=== PATIENT | female | born 1960 | race Caucasian/White ===

== ENCOUNTER 2018-07-09 14:40 | Observation (INO) ==
[2018-07-09] MEDS: NS 1000 ML 1,000 ML IV SCH (17:13)
[2018-07-09] MEDS: SOLU-Medrol 40 MG VIAL IVP SCH ×2 (17:14→21:05)
[2018-07-09] MEDS: PROTONIX INJ 40 MG VIAL IVP SCH ×2 (17:14→21:04)
[2018-07-09] MEDS: BENTYL CAP 10 MG PO SCH ×2 (17:14→21:04)
[2018-07-09 17:17] LABS: BASOPHILS # (AUTO) 0.1 X10^3/uL (0.0-0.1); BASOPHILS % (AUTO) 1.1 % (0.2-1.0); EOSINOPHILS # (AUTO) 0.3 x10^3/uL (0.0-0.2); HEMOGLOBIN 12.9 g/dL (12.0-16.0); LYMPHOCYTES # (AUTO) 1.1 X10^3/uL (1.3-2.9); LYMPHOCYTES % (AUTO) 23.9 % (21.0-51.0); MEAN CORPUSCULAR HEMOGLOBIN 31.3 pg (27.0-34.0); MEAN CORPUSCULAR HGB CONC 34.1 g/dL (33.0-35.0); MEAN PLATELET VOLUME 9.6 fL (7.4-11.0); MONOCYTES # (AUTO) 0.7 x10^3/uL (0.3-0.8); MONOCYTES % (AUTO) 15.9 % (0.0-13.0); NEUTROPHILS # (AUTO) 2.5 x10^3/uL (2.2-4.8); NEUTROPHILS % (AUTO) 53.1 % (42.0-75.0); PLATELET COUNT 259 X10^3/uL (150.0-450.0); RED BLOOD COUNT 4.13 X10^6/uL (3.5-5.4); RED CELL DISTRIBUTION WIDTH 16.4 % (11.6-16.5); WHITE BLOOD COUNT 4.6 X10^3/uL (3.6-10.0)
[2018-07-09] MEDS: PEPCID 20 MG IV PREMIX* 20 MG/50 ML BAG IV SCH ×2 (17:32→21:05)
[2018-07-09 18:42] LABS: ALANINE AMINOTRANSFERASE 61 Units/L (12-78); ALKALINE PHOSPHATASE 85 Units/L (46-116); ASPARTATE AMINO TRANSFERASE 55 Units/L (15-37); BLOOD UREA NITROGEN 13 mg/dL (7-18); CALCIUM 9.1 mg/dL (8.5-10.1); CARBON DIOXIDE 24.7 mmol/L (21-32); CHLORIDE 107 mmol/L (98-107); COR CA(FOR HYPOALB) 9.9 mg/dL (8.5-10.1); CREATININE 0.69 mg/dL (0.55-1.02); SODIUM 140 mmol/L (136-145); TOTAL PROTEIN 7.2 g/dL (6.4-8.2); eGFR NON BLACK RACES > 60 (>60)
[2018-07-09 19:03] LABS: ERYTHROCYTE SEDIMENTATION RATE 40 MM/HOUR (0-20)
[2018-07-09] MEDS ORDERED: POTASSIUM CHL 40 MEQ/NS 0.45% 500 ML IV PRN (20:16)
[2018-07-09] MEDS ORDERED: POTASSIUM CHL 60 MEQ/NS 0.45% 500 ML IV PRN (20:16)
[2018-07-09] MEDS ORDERED: POTASSIUM CHLORIDE LIQ 20 MEQ UDC PO PRN (20:16)
[2018-07-09] MEDS ORDERED: K-RIDER 10 MEQ/NS 100 ML 10 MEQ/100 ML BAG IV PRN (20:16)
[2018-07-09] MEDS ORDERED: K-LYTE EFFERVESCENT PO PRN (20:16)
[2018-07-09 20:27] LABS: BILIRUBIN,URINE 1+ (NEGATIVE); BLOOD/HEMOGLOBIN,URINE 2+ (NEGATIVE); GLUCOSE, URINE NEGATIVE (NEGATIVE); KETONES,URINE 3+ (NEGATIVE); LEUKOCYTE ESTERASE ,URINE 1+ (NEGATIVE); NITRITES,URINE POSITIVE (NEGATIVE); PROTEIN,URINE 2+ (NEGATIVE); UROBILINOGEN,URINE NORMAL (NORMAL)
[2018-07-09 20:31] LABS: APPEARANCE,URINE HAZY (CLEAR); COLOR,URINE YELLOW (YELLOW)
[2018-07-09 20:33] LABS: CRYPTOSPORIDIUM PARVUM ANTIGEN NEGATIVE (NEGATIVE); GIARDIA LAMBLIA ANTIGEN NEGATIVE (NEGATIVE); STOOL FOR WBC POSITIVE (NEGATIVE)
[2018-07-09 20:36] LABS: SQUAMOUS EPITHELIAL CELL,UR NEGATIVE /HPF (NEGATIVE)
[2018-07-09 20:37] LABS: AMORPHOUS SEDIMENT,UR 3+ /HPF (NEGATIVE); BACTERIA,URINE NEGATIVE /HPF (NEGATIVE); MUCUS,URINE FEW /HPF (NEGATIVE)
[2018-07-09] MEDS: MAGNESIUM SULFATE 1 GRAM/100 mL PREMIX 1 GM/100 ML BAG IV PRN (21:03)
[2018-07-10] MEDS: NS 1000 ML 1,000 ML IV SCH ×3 (03:04→16:04)
[2018-07-10] MEDS: MAGNESIUM SULFATE 1 GRAM/100 mL PREMIX 1 GM/100 ML BAG IV PRN ×3 (04:35→16:05)
[2018-07-10] MEDS ORDERED: NS 100 ML IV + SPIKE MINIBAG* 100 ML IV ONE (05:12)
[2018-07-10] MEDS: SOLU-Medrol 40 MG VIAL IVP SCH ×3 (06:10→21:19)
--- NOTE | 2018-07-10 06:10 | CT ---
HISTORY: Abdominal pain. Prior surgical history of bowel resection and lap band. Cholecystectomy Study: CT abdomen and pelvis with IV contrast Comparison: KUB done 06/07/2015. Technique: Multiple axial images of the abdomen and pelvis were obtained from the lung bases to the pubic symphy sis during the administration of IV contrast. Coronal and sagittal images are also reviewed. Dose re duction techniques included utilization of automatic exposure control.. Findings: The visualized portions of the lung bases are unremarkable. There is a 4 cm hiatal hernia present. Di stal to the hiatal hernia and below the diaphragm is the lap band device. The port is present in the periumbilical region on the left. The liver, spleen, pancreas, kidneys, and adrenal glands are unrema rkable in their CT appearance. Gallbladder is surgically absent.. No significant mesenteric lymphade nopathy is observed. No free fluid or free air is seen within the abdomen. No bowel wall dilatation is present. There is mild thickening of the terminal ileum with some associated very mild stranding of the adjacent mesenteric. Findings have the appearance of inflammation, likely terminal or distal i leitis. The appendix is not discretely identified. No evidence of pericecal mass or fluid is seen. Th e colon is unremarkable. Specifically, there is no diverticulosis noted within the sigmoid colon. Th e urinary bladder is grossly unremarkable. Uterus and ovaries are not identified and may have been caputo rgically removed. The bony structures are grossly intact. IMPRESSION: Wall thickening and adjacent stranding of the mesenteric in the region of the terminal ileum. Finding s likely represent distal ileitis. Findings are best appreciated on series 6, image 24 and series 4, image 68. No evidence of fluid collection, mass or abscess is seen. Postsurgical changes as noted above. Reported By:
[2018-07-10 06:19] LABS: BASOPHILS % (AUTO) 0.1 % (0.2-1.0); HEMATOCRIT 33.5 % (36.0-47.0); HEMOGLOBIN 11.6 g/dL (12.0-16.0); LYMPHOCYTES # (AUTO) 0.3 X10^3/uL (1.3-2.9); LYMPHOCYTES % (AUTO) 8.9 % (21.0-51.0); MEAN CORPUSCULAR HEMOGLOBIN 31.3 pg (27.0-34.0); MEAN CORPUSCULAR HGB CONC 34.7 g/dL (33.0-35.0); MEAN CORPUSCULAR VOLUME 90.1 fL (80.0-100.0); MEAN PLATELET VOLUME 9.7 fL (7.4-11.0); MONOCYTES # (AUTO) 0.1 x10^3/uL (0.3-0.8); MONOCYTES % (AUTO) 1.6 % (0.0-13.0); NEUTROPHILS # (AUTO) 2.9 x10^3/uL (2.2-4.8); NEUTROPHILS % (AUTO) 89.4 % (42.0-75.0); PLATELET COUNT 203 X10^3/uL (150.0-450.0); RED BLOOD COUNT 3.72 X10^6/uL (3.5-5.4); RED CELL DISTRIBUTION WIDTH 16.3 % (11.6-16.5); WHITE BLOOD COUNT 3.3 X10^3/uL (3.6-10.0)
[2018-07-10 06:36] LABS: ALANINE AMINOTRANSFERASE 53 Units/L (12-78); ALBUMIN 2.8 g/dL (3.4-5.0); ALKALINE PHOSPHATASE 77 Units/L (46-116); ASPARTATE AMINO TRANSFERASE 42 Units/L (15-37); BLOOD UREA NITROGEN 13 mg/dL (7-18); CALCIUM 8.6 mg/dL (8.5-10.1); CARBON DIOXIDE 23.5 mmol/L (21-32); CHLORIDE 107 mmol/L (98-107); COR CA(FOR HYPOALB) 9.6 mg/dL (8.5-10.1); COR NA(FOR HYPERGLY) 139 mmol/L (136-145); CREATININE 0.57 mg/dL (0.55-1.02); SODIUM 138 mmol/L (136-145); TOTAL PROTEIN 6.7 g/dL (6.4-8.2); eGFR NON BLACK RACES > 60 (>60)
[2018-07-10] MEDS: PROTONIX INJ 40 MG VIAL IVP SCH ×2 (08:44→21:19)
[2018-07-10] MEDS: PEPCID 20 MG IV PREMIX* 20 MG/50 ML BAG IV SCH ×2 (08:44→21:19)
[2018-07-10] MEDS: BENTYL CAP 10 MG PO SCH ×4 (08:45→21:19)
--- NOTE | 2018-07-10 17:14 | DR.CONSULT ---
Consult - Consultation for Day of: Date: 07/10/18 - Chief Complaint Chief Complaint: Patient referred for abdominal pain and chrons exacerbation. Patient with complaints of diarrhea and lower abdominal pain. - History of Present Illness History of Present Illness: Patient is a 58yo female who was referred for abdominal pain and crohns exacerbation. Patient with complaints of diarrhea that started about a week ago and is now getting better and lower abdominal pain that is improving as well. Patient denies dysphagia, dyspepsia, nausea, vomiting, constipation, melena and hematochezia. Last colon was 09/23/2017 which showed surgical changes consistent with ilecolectomy, anastomotic site stricure and monika terminal ileum ulcer. Last EGD was 05/07/2016 which showed surgical changes consitent with lap band surgery, esophageal spasm with upper esophageal narrowing and antral gastritis. - Past Medical History Past Medical History: Anxiety, Arthritis, Asthma, Depression, GERD, Hypertension , Hypothyroidism Additional Medical History: Cataracts, Ear infections, Diverticulosis, Crohn's disease, Diarrhea, UTI's, Endometriosis, Fibroids, Osteoarthritis - Past Surgical History Surgical History: Appendectomy, Bowel Resection, Cholecystectomy, Hysterectomy, Other Additional Surgical History: Exploratory surgery due to Crohn's, Tubal Ligation , Fistula Repair, Lap Band - Family History Family Medical History: Diabetes Mellitus, Cancer, Hypertension - Social History Does patient currently use any type of tobacco product: No Have you used tobacco products in the last 12 months: No Type of Tobacco Use: None Does any household member use tobacco: No Alcohol Use: None Drug Use: None - Medications Home Medications: codeine Adverse Reaction (Verified 07/09/18 17:33) Penicillins Adverse Reaction (Verified 07/09/18 17:33) Sulfa (Sulfonamide Antibiotics) [SULFA] Adverse Reaction (Verified 07/09/18 17: 33) CONTINUE taking the following medications dexlansoprazole [Dexilant] 60 mg PO QDAY 07/09/18 [History] - Review of Systems Gastrointestinal: Abdominal Pain, Diarrhea. denies: Nausea, Vomiting, Constipation, Melena, Hematochezia - Physical Exam Vital Signs: Temperature 97.8 F Pulse Rate [Right Radial] 54 Respiratory Rate 20 Blood Pressure [Right Arm] 110/71 Blood Pressure [Left Arm] 109/68 Blood Pressure 121/73 O2 Sat by Pulse Oximetry 96 Oriented: Normal Eyes: Normal Ear: Normal Nose: Normal Throat: Normal Respiratory: Clear Throughout Cardiovascular: Normal : Normal Auscultation: Bowel Sounds: Normal Palpation: Normal. negative: Spleen Enlarged, Liver Enlarged, Mass Pulsatile Tenderness: Diffuse (mild) Skin: Normal Musculoskeletal: Normal Psychiatric: Normal Mood Description: Calm Affect: Normal Speech Pattern: Clear - Plan Plan: Assessment. 1. Crohns exacerbation, diarrhea, abdominal pain. Plan. 1. Cont Steroids may be discharged home on prednisone tapering (40mg x2 weeks, 30mg x1 week, 20mg x 2week, 10mg x 1week, 5mg x1 week, 2.5mg x1 week) and should follow up in office as outpatient, if reoccurence of exacerbation patinet may need to be started back on humira. Advance diet as tolerated to low residue. Plan reviewed with Dr. Bowen - Allergies Allergies/Adverse Reactions: Allergies Allergy/AdvReac Type Severity Reaction Status Date / Time codeine AdvReac Verified 07/09/18 17:33 Penicillins AdvReac Verified 07/09/18 17:33 Sulfa (Sulfonamide AdvReac Verified 07/09/18 17:33 Antibiotics) [SULFA]
[2018-07-10 18:01] VITALS: BMI 30.1
--- NOTE | 2018-07-10 22:07 | DR.H&P ---
H&P - History & Physical for Day of: H&P Date: 07/09/18 - Chief Complaint Chief Complaint: abdominal pain, nausea, diarrhea - History of Present Illness History of Present Illness: is a 58 year old patient of ours who presented to the [facility] with complaints of lower abdominal pain, diarrhea, and nausea. Patient states that symptoms started approximately one week ago and has progressively gotten worse. She reports that her Crohns is flaring up. States that her symptoms never completely resolve but that the symptoms have increased in severity. She also reports associated symptoms of weakness with unsteady gait and decreased appetite. She states that on Tuesday she began IV vitamin drips that lasted until Tuesday and then received another IV vitamin drip along with IV fluids on Tuesday. On arrival, vitals were 98.3, 86, 20, 94% RA, 113/70. Labs were obtained. Abnormal labs include: Potassium 3.2, Glucose 100, AST 55, CRP 24.90, and stool is positive A for white cells. Urinalysis revealed: Appearance Hazy, Protein 2+, Bilirubin 1+, Leukocyte Esterase 1+, RBC 3-5, WBC 0-2, Amorphous Sediment 3+, Mucous Few. We planned to begin NS 1000 MLS IV @ 150 MLS/HR for aggressive IV hydration along with Solu-Medrol 80 MG IVP Q8HR, Protonix 40 MG IVP BID, and Pepcid 20 MG IV Q12H. We will consult . Otherwise, we will follow up with AM labs and continue to monitor patient. - Past Medical History Past Medical History: Anxiety, Arthritis, Asthma, Depression, GERD, Hypertension , Hypothyroidism Additional Medical History: Cataracts, Ear infections, Diverticulosis, Crohn's disease, Diarrhea, UTI's, Endometriosis, Fibroids, Osteoarthritis - Past Surgical History Surgical History: Appendectomy, Bowel Resection, Cholecystectomy, Hysterectomy, Other Additional Surgical History: Exploratory surgery due to Crohn's, Tubal Ligation , Fistula Repair, Lap Band - Family History Family Medical History: Diabetes Mellitus, Cancer, Hypertension - Social History Does patient currently use any type of tobacco product: No Have you used tobacco products in the last 12 months: No Type of Tobacco Use: None Does any household member use tobacco: No Alcohol Use: None Drug Use: None - Medications Home Medications: codeine Adverse Reaction (Verified 07/09/18 17:33) Penicillins Adverse Reaction (Verified 07/09/18 17:33) Sulfa (Sulfonamide Antibiotics) [SULFA] Adverse Reaction (Verified 07/09/18 17: 33) CONTINUE taking the following medications dexlansoprazole [Dexilant] 60 mg PO QDAY 18 [History] - Review of Systems Constitutional: Weakness, Other (decreased appetite) Eyes: No Symptoms Reported ENT: No Symptoms Reported Respiratory: No Symptoms Reported Cardiovascular: No Symptoms Reported Gastrointestinal: Nausea, Abdominal Pain, Diarrhea Genitourinary: No Symptoms Reported Musculoskeletal: No Symptoms Reported Skin: No Symptoms Reported Neurological: Weakness - Physical Exam Vital Signs: Temperature 97.8 F Pulse Rate [Right Radial] 54 Respiratory Rate 20 Blood Pressure [Right Arm] 110/71 Blood Pressure [Left Arm] 109/68 Blood Pressure 121/73 O2 Sat by Pulse Oximetry 96 Oriented: Normal Eyes: Normal Ear: Normal Nose: Normal Throat: Normal Respiratory: Diminished Throughout Cardiovascular: Normal : Normal Auscultation: Bowel Sounds: Increased Palpation: Normal Tenderness: RLQ, LLQ, Moderate Skin: Normal Musculoskeletal: Normal Psychiatric: Normal Mood Description: Calm Affect: Normal Speech Pattern: Clear - Assessment/Plan (1) Exacerbation of Crohn's disease Qualifiers: Digestive disease complication type: without complication Qualified Code(s) : K50.90 - Crohn's disease, unspecified, without complications Status: Acute Plan: admit, iv solu-medrol, consult GI, zofran for nausea, continue to monitor - Allergies Allergies/Adverse Reactions: Allergies Allergy/AdvReac Type Severity Reaction Status Date / Time codeine AdvReac Verified 07/09/18 17:33 Penicillins AdvReac Verified 07/09/18 17:33 Sulfa (Sulfonamide AdvReac Verified 07/09/18 17:33 Antibiotics) [SULFA]
[2018-07-11] MEDS: NS 1000 ML 1,000 ML IV SCH ×2 (04:00→09:37)
[2018-07-11 04:50] LABS: BASOPHILS % (AUTO) 0.1 % (0.2-1.0); HEMATOCRIT 32.1 % (36.0-47.0); HEMOGLOBIN 11.2 g/dL (12.0-16.0); LYMPHOCYTES # (AUTO) 0.5 X10^3/uL (1.3-2.9); LYMPHOCYTES % (AUTO) 4.9 % (21.0-51.0); MEAN CORPUSCULAR HEMOGLOBIN 31.6 pg (27.0-34.0); MEAN CORPUSCULAR HGB CONC 34.8 g/dL (33.0-35.0); MEAN CORPUSCULAR VOLUME 90.9 fL (80.0-100.0); MEAN PLATELET VOLUME 9.7 fL (7.4-11.0); MONOCYTES # (AUTO) 0.3 x10^3/uL (0.3-0.8); MONOCYTES % (AUTO) 3.1 % (0.0-13.0); NEUTROPHILS # (AUTO) 9.2 x10^3/uL (2.2-4.8); NEUTROPHILS % (AUTO) 91.9 % (42.0-75.0); PLATELET COUNT 215 X10^3/uL (150.0-450.0); RED BLOOD COUNT 3.54 X10^6/uL (3.5-5.4); RED CELL DISTRIBUTION WIDTH 16.1 % (11.6-16.5)
[2018-07-11 04:55] LABS: ALANINE AMINOTRANSFERASE 39 Units/L (12-78); ALBUMIN 2.4 g/dL (3.4-5.0); ALKALINE PHOSPHATASE 70 Units/L (46-116); ASPARTATE AMINO TRANSFERASE 24 Units/L (15-37); BLOOD UREA NITROGEN 10 mg/dL (7-18); CARBON DIOXIDE 22.9 mmol/L (21-32); CHLORIDE 109 mmol/L (98-107); COR CA(FOR HYPOALB) 9.3 mg/dL (8.5-10.1); COR NA(FOR HYPERGLY) 139 mmol/L (136-145); CREATININE 0.56 mg/dL (0.55-1.02); MAGNESIUM 2.1 mg/dL (1.7-2.9); SODIUM 138 mmol/L (136-145); eGFR NON BLACK RACES > 60 (>60)
[2018-07-11 05:10] LABS: BAND NEUTROPHILS % 1 % (0-10)
[2018-07-11 05:11] LABS: PLATELET MORPHOLOGY COMMENT NORMAL (NORMAL)
[2018-07-11] MEDS: SOLU-Medrol 40 MG VIAL IVP SCH ×2 (05:48→14:53)
[2018-07-11] MEDS: PEPCID 20 MG IV PREMIX* 20 MG/50 ML BAG IV SCH (09:34)
[2018-07-11] MEDS: BENTYL CAP 10 MG PO SCH ×2 (09:34→14:52)
[2018-07-11] MEDS: PROTONIX INJ 40 MG VIAL IVP SCH (09:34)
[2018-07-11 13:01] VITALS: BP 135/79
--- NOTE | 2018-08-21 21:57 | DR.CARTERD ---
- Discharge Summary for: Discharge Summary for Date of:: 07/11/18 - Admission Date Date of Admission: 07/09/18 - Admission Diagnoses Admission Diagnosis: (1) Exacerbation of Crohn's disease (2) Abdominal Pain (3) Nausea and vomiting (4) Diarrhea - Discharge Date Discharge Date: 07/11/18 - Discharge Diagnoses Discharge Diagnosis: (1) Exacerbation of Crohn's disease (2) Abdominal Pain (3) Nausea and vomiting (4) Diarrhea - Hospital Course Hospital Course: Day one, Ms. Calloway is a 58 year old patient of ours who presented to the [facility] with complaints of lower abdominal pain, diarrhea, and nausea. Patient stated that symptoms started approximately one week prior and had progressively gotten worse. She reported that her Crohns was flaring up. She stated that her symptoms never completely resolve but that the symptoms had increased in severity. She also reported associated symptoms of weakness with unsteady gait and decreased appetite. She stated that on Tuesday she began IV vitamin drips that lasted until Tuesday and then received another IV vitamin drip along with IV fluids on Tuesday. On arrival, vitals were 98.3, 86, 20, 94% RA, 113/70. Labs were obtained. Abnormal labs included: Potassium 3.2, Glucose 100, AST 55, CRP 24.90, and stool is positive A for white cells. Urinalysis revealed: Appearance Hazy, Protein 2+, Bilirubin 1+, Leukocyte Esterase 1+, RBC 3-5, WBC 0-2, Amorphous Sediment 3+, Mucous Few. We planned to begin NS 1000 MLS IV @ 150 MLS/HR for aggressive IV hydration along with Solu-Medrol 80 MG IVP Q8HR, Protonix 40 MG IVP BID, and Pepcid 20 MG IV Q12H. We consulted . We continued to monitor patient. Day two, DUTCH Taylor from Dr. Bowen's office evaluated patient and recommended to continue IV steroids and patient should be discharged with oral steroids and tapered. She also recommended follow up in their office. Patient continued with abdominal pain, diarrhea, and nausea, but stated symptoms were improving. Day three, Patient reported she felt better. She denied abdominal pain, nausea, vomiting, or diarrhea. Vital signs stable. Labs wnl. We planned for discharge. Instructions for medications and follow up were discussed with patient and family, both voiced understanding. Patient discharged home in stable condition with family. - Discharge Medications Discharge Medications: Home Medication List dexlansoprazole [Dexilant] 60 mg PO QDAY 07/09/18 [History] dicyclomine 20 mg PO QID PRN #40 tab 07/11/18 [Rx] levofloxacin [Levaquin] 750 mg PO DAILY #10 tab 07/13/18 [Rx] Prescriptions: dicyclomine Gavin Stuart levofloxacin [Levaquin] Gavin Stuart Home medications Escitalopram Oxalate 10 mg PO DAILY 06/07/15 levothyroxine [Unithroid] 50 mcg PO DAILY 06/07/15 azathioprine 100 mg PO BID 08/24/16 estradiol 2 mg PO DAILY 08/24/16 pilocarpine HCl [Salagen (pilocarpine)] 5 mg PO BID 08/24/16 - Discharge Disposition Discharge Disposition: Patient is to follow up in our office in one week and with Dr. Bowen in one week.
== END 2018-07-11 15:55 | disposition home or self-care (01) ==
LOC: MED/SURG
PROVIDERS: ADMIT Internal Medicine; ATTEND Internal Medicine
DX: F41.8 Other specified anxiety disorders; F32.89 Other specified depressive episodes; K50.918 Crohn's disease, unspecified, with other complication; A02.8 Other specified salmonella infections; E03.8 Other specified hypothyroidism; R26.81 Unsteadiness on feet; R79.82 Elevated C-reactive protein (CRP); R10.84 Generalized abdominal pain; R63.0 Anorexia; I10 Essential (primary) hypertension; K21.9 Gastro-esophageal reflux disease without esophagitis
CPT/HCPCS: 36415; 74177; 80053; 81001; 82270; 83630; 83735; 85025; 85652; 86140; 87045; 87077; 87186; 87328; 87329; 87427; 87449; 87493; 87899; A4216; A4222; C9113; S0028; G0378; J2920; J3475; J3480; J7030; J7050; J8499